=== PATIENT | male | born 1980 | race Caucasian/White ===

== ENCOUNTER 2016-12-01 06:13 | Day surgery (SDC) | payer BC ==
[2016-11-27 11:15] VITALS: BMI 19.2
[2016-12-01] MEDS ORDERED: ONDANSETRON 4 MG/2 ML VIAL ONE ×2 (06:59→09:26)
[2016-12-01] MEDS ORDERED: ePHEDrine SULFATE 50 MG/1 ML AMPULE ONE (06:59)
[2016-12-01] MEDS ORDERED: ceFAZolin SODIUM 1 GM VIAL ONE (06:59)
[2016-12-01] MEDS ORDERED: SODIUM CHLORIDE 0.9% P/F 10 ML VIAL IJ ONE (06:59)
[2016-12-01] MEDS ORDERED: LIDOCAINE HCL/PF 2% SDV 5ML VIAL ONE (06:59)
[2016-12-01] MEDS ORDERED: PHENYLEPHRINE HCL 10 MG/1 ML SINGLE DOSE VIAL ONE (06:59)
[2016-12-01] MEDS ORDERED: PROPOFOL 20 ML ONE ×2 (06:59)
[2016-12-01] MEDS ORDERED: MIDAZOLAM HCL 2 MG/2 ML SINGLE DOSE VIAL ONE (07:00)
[2016-12-01] MEDS ORDERED: SUCCINYLCHOLINE CHLORIDE 200 MG/10 ML VIAL ONE (07:00)
[2016-12-01] MEDS ORDERED: ROCURONIUM BROMIDE 50 MG/5 ML VIAL ONE ×2 (07:00→08:12)
[2016-12-01] MEDS ORDERED: ACETAMINOPHEN INJECTION 100 ML IVPB ONE (07:10)
[2016-12-01] MEDS ORDERED: COCAINE HCL 4% TOPICAL SOLUTION 4 ML BOTTLE TP ONE (07:17)
[2016-12-01] MEDS ORDERED: LIDOCAINE 1%-EPI 1:100,000 30 ML MDV IJ ONE ×2 (07:17→08:09)
[2016-12-01] MEDS ORDERED: OXYMETAZOLINE 0.05% NASAL SOLUTION 15 ML BOTTLE NS ONE (07:17)
[2016-12-01] MEDS ORDERED: GLYCOPYRROLATE 0.2 MG/1 ML VIAL ONE (08:13)
[2016-12-01] MEDS ORDERED: NEOSTIGMINE METHYLSULFATE 0.5 MG/ML - 10 ML MDV ONE (08:14)
[2016-12-01] MEDS ORDERED: LACTATED RINGERS SOLUTION 1,000 ML IV SCH (09:30)
[2016-12-01 10:53] VITALS: TEMP 98
[2016-12-01 11:00] VITALS: BP 137/85; PULSE 78
[2016-12-01] MEDS ORDERED: ONDANSETRON 4 MG/2 ML VIAL IVPUSH PRN (11:45)
[2016-12-01] MEDS ORDERED: oxyCODONE HCL 5 MG TABLET PO PRN (11:45)
[2016-12-01] MEDS ORDERED: PROMETHAZINE HCL 25 MG/1 ML VIAL IVPUSH PRN (11:46)
--- NOTE | 2016-12-01 12:20 | OP ---
DATE OF OPERATION: 12/01/2016 PREOPERATIVE DIAGNOSIS: Chronic sinusitis. POSTOPERATIVE DIAGNOSIS: Chronic sinusitis. PRODEDURE: Right endoscopic total ethmoidectomy and bilateral endoscopic maxillary antrostomies. SURGEON: Kumar Harper MD ANESTHESIA: General endotracheal. INDICATIONS: The patient is a 36-year-old man with chronic sinusitis refractory to medical management who requests surgery. A CT scan revealed inflammation of both maxillary and the right ethmoid sinuses. The nature and purpose of the proposed procedure as well as the risks, benefits, alternatives, and possible complications were discussed in detail with the patient, who appears to understand and wishes to proceed with surgery. All questions were answered, and an informed consent was given by the patient. PROCEDURE DESCRIPTION: With the patient under general endotracheal anesthesia in the supine position with the back slightly raised, he was prepped and draped in the usual sterile fashion. The nose was decongested with topical 4% cocaine on pledgets as well as 8 mL of 1% lidocaine with epinephrine 1:100,000 that was injected. After waiting several minutes, the pledgets were removed, and the procedure was begun under endoscopic guidance. The anteroinferior portions of the bilateral middle turbinates were large and polypoid, and so were resected followed by suction cautery for hemostasis. A right retrograde uncinectomy was performed revealing an accessory maxillary ostium as well as primary maxillary ostium more anteriorly. These were connected by removing the intervening tissue. The maxillary antrum looked grossly normal. An anterior to posterior total ethmoidectomy was then performed with removal of polypoid ethmoid contents. Switching to the opposite side, a retrograde uncinectomy was performed. Only one maxillary ostium was identified. This was opened posteriorly. The interior of the maxillary sinus was noted to be grossly normal. Stammberger Sinu-Foam was then placed into each middle meatus for hemostasis, and a nasal tip dressing was applied. When patient awakened, he was extubated and discharged to the recovery room in satisfactory condition. Estimated blood loss was 20 mL. There were no complications. Specimens were sent for pathology. KUMAR HARPER M.D. [id number] MTDD
--- NOTE | 2016-12-02 13:49 | PATH ---
Surgical Pathology Report Patient Name: LENA BAILEY [facility]. Rec. #: [id number] /Age/Gender: 1980 (Age: 36) / M Account: [id number] Location: [facility] AMBUL[facility] Taken: 12/01/2016 Received: 12/01/2016 Reported: 12/02/2016 Physicians: Kumar Harper Specimen(s) Received SINUS CONTENTS Clinical History Chronic sinusitis Final Diagnosis SINUS CONTENTS, EXCISION: RESPIRATORY MUCOSA SHOWING MILD CHRONIC INFLAMMATION. BONE WITH NO PATHOLOGIC FINDINGS. Electronically Signed Bella Treadwell M.D. Gross Description Received in formalin, labeled "sinus contents," is a 4.0 x 2.5 x 0.4 cm aggregate of stevenson, irregular portions of soft tissue and possible bone. The specimen is entirely submitted in 2 cassettes, following decalcification. /12/01/201612/01/2016
== END 2016-12-01 10:45 | disposition home or self-care (01) ==
LOC: FASU 06:13
PROVIDERS: ATTEND Otolaryngology
PROC: 099R4ZZ Drainage of Left Maxillary Sinus, Percutaneous Endoscopic Approach (ICD-10-PCS; 2016-12-01)
PROC: 099Q4ZZ Drainage of Right Maxillary Sinus, Percutaneous Endoscopic Approach (ICD-10-PCS; 2016-12-01)
PROC: 09BU4ZZ Excision of Right Ethmoid Sinus, Percutaneous Endoscopic Approach (ICD-10-PCS; principal; 2016-12-01 08:02)
DX: J32.8 Other chronic sinusitis (principal)
CPT/HCPCS: 88304-TC; 94760